=== PATIENT | male | born 1980 | race Caucasian/White ===

== ENCOUNTER 2017-08-27 10:24 | Emergency (ER) | payer BC ==
--- NOTE | 2017-08-27 11:25 | UC ---
Back Pain HPI - HPI Summary HPI Summary: Pt presents with LBP since 08/14. He tells me that he was skiing and went off a jump - landed on his right buttock. Had immediate intense pain, but was able to ambulate. Over the next few days had various bruising to his right buttocks, leg , and lower back. He rested and his symptoms improved with time. Yesterday he was squatting to sit down on the grass - felt pain in his right SI. Since that time has had a dull ache in the area. Takes ibuprofen with good relief. He works as a part maker and since the initial injury - has noticed that his pain worsens when lifting heavy materials. Denies numbness, tingling, radiation of pain, saddle anesthesia, loss of bowel/bladder control. - History of Current Complaint Stated Complaint: TAIL BONE INJ Time Seen by Provider: 08/27/17 11:25 Hx Obtained From: Patient Onset/Duration: Sudden Onset Timing: Constant Severity Initially: Severe Severity Currently: Mild Pain Intensity: 3 Pain Scale Used: 0-10 Numeric Character: Aching Aggravating Factor(s): Movement, Lifting, Bending Alleviating Factor(s): Rest, Position, OTC Meds - Allergies/Home Medications Allergies/Adverse Reactions: Allergies Allergy/AdvReac Type Severity Reaction Status Date / Time No Known Allergies Allergy Verified 08/27/17 11:43 PMH/Surg Hx/FS Hx/Imm Hx Previously Healthy: Yes - Surgical History Surgical History: None Surgery Procedure, Year, and Place: denies - Family History Known Family History: Positive: None - Social History Occupation: Employed Full-time Lives: With Family Alcohol Use: Occasionally Substance Use Type: None Smoking Status (MU): Never Smoked Tobacco Review of Systems Constitutional: Negative Skin: Negative Respiratory: Negative Cardiovascular: Negative Gastrointestinal: Negative Genitourinary: Negative Neurovascular: Negative Musculoskeletal: Other: - LBP Neurological: Negative Psychological: Negative All Other Systems Reviewed And Are Negative: Yes Physical Exam - Summary Physical Exam Summary: GENERAL: NAD. WDWN. No pain distress. SKIN: No rashes, sores, ulcers, masses, lesions. NECK: Supple. FROM. Nontender. No lymphadenopathy. CHEST: CTAB. No r/r/w. No accessory muscle use. Breathing comfortably and in no distress. CV: RRR. Without m/r/g. Pulses intact. Brisk cap refill. MSK: TTP over lumbar paraspinal muscles worse on right. TTP right SI. Pain with flexion and extension of spine. No vertebral tenderness. Negative SLR b/l. Strength 5/5 B/L LEs including dorsiflexion and plantar flexion. FROM B/L LEs. No edema. NEURO: Alert. CN II-XII grossly intact. Sensations intact B/L LEs L3-S1. PSYCH: Age appropriate behavior. Triage Information Reviewed: Yes Back Pain Course/Dx - Course Course Of Treatment: XR: IMPRESSION: FINDINGS MOST CONSISTENT WITH BILATERAL SPONDYLOLYSIS AT THE L5 LEVEL. NO ACUTE OSSEOUS INJURY OF THE SACRUM AND COCCYX. I spoke with Dr. Louis and he recommended outpatient follow up with Ortho spine or Neurosurgery. Given his line of work - I will provide pt with off work for the next 4 days to allow him to schedule an appointment for follow up. He has no neurological deficits at this time and has been ambulating with this injury, likely, for the last 10 days. Pain well controlled with ibuprofen. - Differential Dx/Diagnosis Provider Diagnoses: BILATERAL SPONDYLOLYSIS AT THE L5. Fall Discharge - Sign-Out/Discharge Documenting (check all that apply): Discharge - Discharge Plan Condition: Stable Disposition: HOME Patient Education Materials: Back Pain (ED) Forms: *Work Release Referrals: Devon Enamorado MD [Primary Care Provider] - Brayden Reid MD [Medical Doctor] - As Soon As Possible Additional Instructions: If you develop a fever, shortness of breath, chest pain, new or worsening symptoms - please call your PCP or go to the ED. 1) Please follow up with Dr. Reid or [facility] for further evaluation of your spondylolysis - Billing Disposition and Condition Condition: STABLE Disposition: HOME
[2017-08-27 11:42] VITALS: BP 123/80
--- NOTE | 2017-08-27 12:05 | RAD ---
HISTORY: Low back pain, sacrum and coccyx pain, subacute trauma COMPARISONS: None VIEWS: 3, frontal, lateral, and outlet views of the sacrum and coccyx FINDINGS: BONE DENSITY: Normal. BONES: There is no displaced fracture. JOINTS: There is no arthropathy. ALIGNMENT: There is no dislocation. SOFT TISSUES: Unremarkable. OTHER FINDINGS: None. IMPRESSION: NO ACUTE OSSEOUS INJURY OF THE SACRUM AND COCCYX. PLAIN FILMS ARE RELATIVELY INSENSITIVE TO NONDISPLACED FRACTURES OF THE SACRUM AND COCCYX. IF THERE IS PERSISTENT CLINICAL CONCERN FOR SACROCOCCYGEAL OSSEOUS PATHOLOGY, BONE SCANNING MAY BE MORE SENSITIVE
--- NOTE | 2017-08-27 12:08 | RAD ---
INDICATION: Low back pain. COMPARISON: There are no prior studies available for comparison. TECHNIQUE: 4 views of the lumbar sacral spine were obtained. FINDINGS: The vertebra are normal alignment. There is increased radiolucency in the region of pars interarticularis present on both sides at the L5 level most consistent with bilateral spondylolysis. Disc spaces appear maintained. IMPRESSION: FINDINGS MOST CONSISTENT WITH BILATERAL SPONDYLOLYSIS AT THE L5 LEVEL.
== END 2017-08-27 13:09 | disposition home or self-care (01) ==
LOC: UCCORT 10:24
DX: M43.06 Spondylolysis, lumbar region (principal); Y93.23 Activity, snow (alpine) (downhill) skiing, snowboarding, sledding, tobogganing and snow tubing
CPT/HCPCS: 72110; 72220; 99211; G0463

== ENCOUNTER 2017-12-08 09:32 | Emergency (ER) | payer BC ==
[2017-12-08 10:51] VITALS: BP 136/87
[2017-12-08] MEDS ORDERED: cefTRIAXone VIAL(*) 250 MG VIAL IM ONE (11:07)
[2017-12-08] MEDS ORDERED: Lidocaine 1% MPF* 2 ML VIAL ONE (11:14)
--- NOTE | 2017-12-08 11:16 | UC ---
Complaint Male HPI - HPI Summary HPI Summary: white penile discharge x 1 day + dysuria , no history of GC or Chlamydia + history of genital HSV pt. and his gf has been with other sexual partners recently - History of Current Complaint Chief Complaint: UCGU Stated Complaint: PERSONAL Time Seen by Provider: 12/08/17 11:01 Hx Obtained From: Patient Onset/Duration: Gradual Onset, Lasting Days - 1, Still Present Timing: Constant Severity Initially: Moderate Severity Currently: Moderate Pain Intensity: 2 Location: Penis Character: Burning Aggravating Factor(s): Voiding Alleviating Factor(s): Nothing Associated Signs And Symptoms: Positive: Dysuria, Penile Discharge - white. Negative: Back Pain, Fever, Hematuria, Constipation, Blood in Stool, Rectal Pain , Appetite, Nausea, Vomiting(# Of Episodes =), Penile Swelling - Allergies/Home Medications Allergies/Adverse Reactions: Allergies Allergy/AdvReac Type Severity Reaction Status Date / Time No Known Allergies Allergy Verified 12/08/17 10:47 Home Medications: Home Medications Acyclovir* [Zovirax 400 MG TAB*] 1 gm PO DAILY 12/08/17 [History Confirmed 12/08] PMH/Surg Hx/FS Hx/Imm Hx - Additional Past Medical History Additional PMH: hx of genital HSV - Surgical History Surgical History: None Surgery Procedure, Year, and Place: lasik. nasal surgery - Family History Known Family History: Positive: None Negative: Diabetes - Social History Alcohol Use: Occasionally Substance Use Type: None Smoking Status (MU): Never Smoked Tobacco Review of Systems Constitutional: Negative Skin: Negative Eyes: Negative ENT: Negative Respiratory: Negative Genitourinary: Dysuria, Vaginal/Penile Discharge Motor: Negative Is Patient Immunocompromised?: No All Other Systems Reviewed And Are Negative: Yes Physical Exam Triage Information Reviewed: Yes Appearance: Well-Appearing, No Pain Distress, Well-Nourished Vital Signs: Initial Vital Signs Temp 97.9 F 12/08/17 10:40 Pulse 69 12/08/17 10:40 Resp 13 12/08/17 10:40 BP 136/87 12/08/17 10:40 Pulse Ox 99 12/08/17 10:40 Vital Signs Reviewed: Yes Eye Exam: Normal Eyes: Positive: Conjunctiva Clear ENT: Positive: Normal ENT inspection, Hearing grossly normal, Pharynx normal Neck exam: Normal Neck: Positive: Supple, Nontender, No Lymphadenopathy Respiratory: Positive: Chest non-tender, Lungs clear, Normal breath sounds Cardiovascular: Positive: RRR, No Murmur, Pulses Normal Abdominal Exam: Normal Abdomen Description: Positive: Nontender, No Organomegaly, Soft. Negative: CVA Tenderness (R), CVA Tenderness (L) Bowel Sounds: Positive: Present Male Genital Exam: Positive: Normal Genitalia Skin Exam: Normal Complaint Male Course/Dx - Differential Dx/Diagnosis Provider Diagnoses: urethritis Discharge - Sign-Out/Discharge Documenting (check all that apply): Patient Departure - Discharge Plan Condition: Stable Disposition: HOME Prescriptions: Azithromycin TAB* [Zithromax TAB (Z-TONE) 250 mg #6 tabs] 4 tab PO ONCE #4 tab Patient Education Materials: Nonspecific Urethritis in Men (ED) Referrals: Devon Enamorado MD [Primary Care Provider] - 7 Days Additional Instructions: will check for Gonorrhea and Chlamydia will start treatment today please call the office in 2 days for the lab results - Billing Disposition and Condition Condition: STABLE Disposition: Home
--- NOTE | 2017-12-09 15:14 | UC ---
- Progress Note Progress Note: notify pt of results needs to follow up with his provider as he was directed for a test of cure Discharge - Sign-Out/Discharge Documenting (check all that apply): Post-Discharge Follow Up - Discharge Plan Condition: Stable Disposition: HOME Prescriptions: Azithromycin TAB* [Zithromax TAB (Z-TONE) 250 mg #6 tabs] 4 tab PO ONCE #4 tab Patient Education Materials: Nonspecific Urethritis in Men (ED) Referrals: Devon Enamorado MD [Primary Care Provider] - 7 Days Additional Instructions: will check for Gonorrhea and Chlamydia will start treatment today please call the office in 2 days for the lab results - Billing Disposition and Condition Condition: STABLE Disposition: Home
== END 2017-12-08 11:46 | disposition home or self-care (01) ==
LOC: UCCORT 09:32
DX: N34.2 Other urethritis (principal)
CPT/HCPCS: 87491; 87591; 96372; 99212; G0463; J0696

== ENCOUNTER 2019-03-27 17:28 | Emergency (ER) | payer BC ==
[2019-03-27 18:16] VITALS: BP 125/89
--- NOTE | 2019-03-27 18:31 | UC ---
Complaint Male HPI - HPI Summary HPI Summary: Noticed white purulent penile discharge yesterday and this morning with significant dysuria and redness at urethral meatus. No sore throat, fevers. Uses condoms. - History of Current Complaint Chief Complaint: UCGU Stated Complaint: URINARY Time Seen by Provider: 03/27/19 18:19 Hx Obtained From: Patient Onset/Duration: Sudden Onset, Lasting Days - 2, Still Present - but a little better this afternoon. Timing: Lasting Seconds - with urination. Severity Initially: Mild Severity Currently: Mild Pain Intensity: 1 Location: Penis Character: Sharp, Burning Aggravating Factor(s): Voiding Alleviating Factor(s): Nothing Associated Signs And Symptoms: Positive: Dysuria, Penile Discharge - purulent discharge - Allergies/Home Medications Allergies/Adverse Reactions: Allergies Allergy/AdvReac Type Severity Reaction Status Date / Time No Known Allergies Allergy Verified 03/27/19 18:06 PMH/Surg Hx/FS Hx/Imm Hx Previously Healthy: Yes - Surgical History Surgical History: None Surgery Procedure, Year, and Place: [facility]. nasal surgery - Family History Known Family History: Positive: None, Cardiac Disease Negative: Diabetes - Social History Occupation: Employed Full-time Lives: Alone Alcohol Use: Occasionally Substance Use Type: None Smoking Status (MU): Never Smoked Tobacco Review of Systems All Other Systems Reviewed And Are Negative: Yes Genitourinary: Positive: Dysuria, Vaginal/Penile Discharge Physical Exam Triage Information Reviewed: Yes Appearance: Well-Appearing, No Pain Distress, Well-Nourished Vital Signs: Initial Vital Signs Temp 99.5 F 03/27/19 18:09 Pulse 99 03/27/19 18:09 Resp 18 03/27/19 18:09 BP 125/89 03/27/19 18:09 Pulse Ox 98 03/27/19 18:09 Vital Signs Reviewed: Yes Eyes: Positive: Conjunctiva Clear Neck exam: Normal Respiratory Exam: Normal Cardiovascular Exam: Normal Abdominal Exam: Normal Male Genital Exam: Positive: Erythema - at the urethral meatus. Negative: Scrotum Tenderness (R), Scrotum Tenderness (L), Testicular Tenderness (R), Testicular Tenderness (L), Urethral Discharge Musculoskeletal Exam: Normal Neurological Exam: Normal Psychological Exam: Normal Skin Exam: Normal Complaint Male Course/Dx - Differential Dx/Diagnosis Differential Diagnosis/HQI/PQRI: Epididymitis, Prostatitis, Urinary Tract Infection Provider Diagnosis: Urethritis Discharge ED - Sign-Out/Discharge Documenting (check all that apply): Patient Departure All imaging exams completed and their final reports reviewed: No Studies - Discharge Plan Condition: Stable Disposition: HOME Prescriptions: DOXYcycline CAP(*) [DOXYcycline 100MG CAP(*)] 100 mg PO BID #20 cap Patient Education Materials: Nonspecific Urethritis in Men (ED), Ceftriaxone ( By injection), Doxycycline (By mouth) Referrals: Valente Gould DO [Primary Care Provider] - - Billing Disposition and Condition Condition: STABLE Disposition: Home
[2019-03-27] MEDS ORDERED: cefTRIAXone VIAL(*) 1,000 MG VIAL IM ONE (18:32)
[2019-03-27] MEDS ORDERED: DOXYcycline CAP(*) 100 MG PO ONE (18:33)
[2019-03-27] MEDS ORDERED: Lidocaine 1% MPF* 2 ML VIAL INJ ONE (18:40)
[2019-03-27] MEDS ORDERED: Lidocaine 1% MPF ** 5 ML VIAL IM ONE (18:41)
[2019-03-27] MEDS ORDERED: cefTRIAXone VIAL(*) 250 MG VIAL IM ONE (18:41)
[2019-03-29 10:33] LABS: Chlamydia trachomatis NAA Positive (Negative); Neisseria gonorrhoeae (GC) NAA Negative (Negative)
--- NOTE | 2019-03-29 12:25 | UC ---
- Progress Note Progress Note: please call the pt. with his lab results + Chlamydia , negative GC pt. was already treated with antibiotics please have the pts partner be seen for treatment Course/Dx - Diagnoses Provider Diagnoses: Urethritis Discharge ED - Sign-Out/Discharge Documenting (check all that apply): Patient Departure All imaging exams completed and their final reports reviewed: No Studies - Discharge Plan Condition: Stable Disposition: HOME Prescriptions: DOXYcycline CAP(*) [DOXYcycline 100MG CAP(*)] 100 mg PO BID #20 cap Patient Education Materials: Doxycycline (By mouth), Ceftriaxone (By injection) , Nonspecific Urethritis in Men (ED) Referrals: Valente Gould DO [Primary Care Provider] - - Billing Disposition and Condition Condition: STABLE Disposition: Home
== END 2019-03-27 19:08 | disposition home or self-care (01) ==
LOC: UCCORT 17:28
DX: N34.2 Other urethritis (principal)
CPT/HCPCS: 81003; 87491; 87591; 96372; 99212; A9270-GY; G0463; J0696